=== PATIENT | female | born 1965 | race Caucasian/White ===

== ENCOUNTER → 2018-08-24 | Outpatient (CLI) | payer MEDICARE, OTHER ==
[~2018-08-24] MED LIST: ALBU90OI61; AMLO5; CITA20; FENOFIBRATE; FLUSAL1005; HYDHCL25; IBUP800 PO; LEVSOD25; MELO7.5 PO; MONT10T; NAPR500; NIAC500ER; OMEP20ER; ROSU10TA; RXANTBENOT AU; RXOXYACE PO; SULTRIDS PO; TRAZ100; UNK BP MED; UNK CHOLESTEROL MED; Zithromax250 MG PO
[2018-08-26 15:07] LABS: HPV 16 Negative (Negative); HPV 18 Negative (Negative); HPV OTHER HR TYPES Negative (Negative)
== END | disposition home or self-care (01) ==
LOC: LAB 18:26 → LAB SHORT 18:26
PROVIDERS: Nurse Practitioner Obstetrics & Gynecology
DX: Z01.419 Encounter for gynecological examination (general) (routine) without abnormal findings (principal)
CPT/HCPCS: 87624; G0123

== ENCOUNTER 2019-02-24 08:16 | Day surgery (SDC) | payer MEDICARE, OTHER ==
[~2019-02-24] VITALS: Ht 162.6 cm; Wt 77.3 kg
--- NOTE | 2019-02-24 09:31 | NUR ---
02/24/[address] NOTIFIED OF PT.'S LUNGS WITH WHEEZES. ORDER GIVEN FOR DUONEB. DUONEB GIVEN.
--- NOTE | 2019-02-24 10:10 | NUR ---
02/24/19 1010 Montse Pardo 0944 O2 SATS 90% ON 3L/NC, O2 UP TO 5L/NC
== END 2019-02-24 10:46 | disposition home or self-care (01) ==
LOC: ORSCSDS 08:16
PROVIDERS: Internal Medicine Gastroenterology
PROC: 0DBN8ZX Excision of Sigmoid Colon, Via Natural or Artificial Opening Endoscopic, Diagnostic (ICD-10-PCS; principal; 2019-02-24 09:45)
DX: Z12.11 Encounter for screening for malignant neoplasm of colon (principal); Z80.0 Family history of malignant neoplasm of digestive organs; Z86.010 Personal history of colon polyps; D12.5 Benign neoplasm of sigmoid colon; K57.30 Diverticulosis of large intestine without perforation or abscess without bleeding; K60.2 Anal fissure, unspecified; E03.9 Hypothyroidism, unspecified; I10 Essential (primary) hypertension; J43.9 Emphysema, unspecified; F17.210 Nicotine dependence, cigarettes, uncomplicated; Z99.81 Dependence on supplemental oxygen; Z79.899 Other long term (current) drug therapy
CPT/HCPCS: 88305; J2704; J3010; J7120

== ENCOUNTER 2022-06-05 12:14 | Day surgery (SDC) | payer OTHER ==
[~2022-06-05] VITALS: Ht 162.6 cm; Wt 77.1 kg
[2022-06-05] MEDS ORDERED: METF500 (12:42)
[2022-06-05] MEDS ORDERED: GLIP2.5ER (12:42)
== END 2022-06-05 15:30 | disposition home or self-care (01) ==
LOC: ORSCSDS 12:14
PROVIDERS: Internal Medicine Gastroenterology
PROC: 0DBL8ZX Excision of Transverse Colon, Via Natural or Artificial Opening Endoscopic, Diagnostic (ICD-10-PCS; principal; 2022-06-05 13:45)
DX: Z12.11 Encounter for screening for malignant neoplasm of colon (principal); Z86.010 Personal history of colon polyps; Z80.0 Family history of malignant neoplasm of digestive organs; D12.3 Benign neoplasm of transverse colon; K57.30 Diverticulosis of large intestine without perforation or abscess without bleeding; G47.33 Obstructive sleep apnea (adult) (pediatric); K64.8 Other hemorrhoids; I10 Essential (primary) hypertension; E10.8 Type 1 diabetes mellitus with unspecified complications; F17.210 Nicotine dependence, cigarettes, uncomplicated; J43.9 Emphysema, unspecified; Z79.899 Other long term (current) drug therapy
CPT/HCPCS: 82947; 88305; J2704; J7120

== ENCOUNTER → 2024-01-19 | Outpatient (CLI) | payer OTHER ==
[~2024-01-19] MED LIST changes: +GLIP2.5ER; +METF500
== END ==
LOC: LAB 07:56 → LAB SHORT 07:56
DX: N90.89 Other specified noninflammatory disorders of vulva and perineum (principal)
CPT/HCPCS: 88305

== ENCOUNTER 2025-04-07 07:14 | Day surgery (SDC) | payer OTHER ==
[~2025-04-07] VITALS: Ht 157.5 cm; Wt 68.1 kg
[2025-04-07] VITALS (8 sets, daily range): BP systolic 140–170; BP diastolic 70–87
[~2025-04-07 07:14] MED LIST changes: +ALBU90OI INH; -ALBU90OI61; +AMLO10 PO; -AMLO5; +CELEXA40 M1 PO; -CITA20; +CLIMARA1 EACH TOP; +COMBIVENT RESPIM4 G1 INH; -GLIP2.5ER; +GLIPIZIDE ER5 MG PO; -HYDHCL25; +HYDHCL25 PO; -LEVSOD25; +LEVSOD25 PO; +LOSA25 PO; -METF500; +METF500 PO; -MONT10T; +MONT10T PO; -OMEP20ER; +OMEP20ER PO; +OZEMPIC0.25 MG/02 SC; +ROSUVASTATIN CA20 MG PO
--- NOTE | 2025-04-07 08:10 | NUR ---
History, Chart, Medications and Allergies reviewed before start of procedure. Pre-Op teaching done. Pt verbalizes understanding. Ambulatory in Day Surgery. Patient confirms NPO status and agrees with scheduled surgery. Patient States Post-Procedure ride home has been arranged.
[2025-04-07] MEDS ORDERED: Bupivacaine 0.5% HCl 5 MG/ML 30MLVIAL ONE (08:23)
[2025-04-07] MEDS ORDERED: Metoclopramide HCl 5MG / ML 2ML Vial IV PRN (08:25)
[2025-04-07] MEDS ORDERED: HYDROmorphone HCl/Pf 1MG SYR IV PRN (08:25)
[2025-04-07] MEDS ORDERED: FentaNYL Citrate 50 MCG/ML 2 ML Injection IV PRN ×3 (08:25→08:30)
[2025-04-07] MEDS ORDERED: Midazolam HCl 1MG / ML 2ML Vial IV PRN (08:25)
[2025-04-07] MEDS ORDERED: FentaNYL Citrate 50 MCG/ML 2 ML Injection ONE (08:27)
[2025-04-07] MEDS ORDERED: Ketorolac Tromethamine 30mg Vial ONE (08:30)
[2025-04-07] MEDS ORDERED: Dexamethasone Sod Phos 10 MG/ML 1ML VIAL ONE (08:30)
[2025-04-07] MEDS ORDERED: Ondansetron HCl 2 MG / ML 2ML Vial IV PRN (08:30)
[2025-04-07] MEDS ORDERED: Ondansetron HCl 2 MG / ML 2ML Vial ONE (08:30)
[2025-04-07] MEDS ORDERED: OxyCODONE 5 mg/Acetamin 325 mg TABLET PO ONE (11:40)
--- NOTE | 2025-04-07 11:42 | NUR ---
TO STEP POST LIPOMA REMOVAL. RIGHT UPPER BACK WITH MEDIPORE DRESSING, CDI. DENIES PAIN, NAUSEA, SOB. YOUNG PO WELL. 1 PERCOCET GIVEN ORDERED. DC'D IV INTACT. DC'D VIA WC TO PRIVATE CAR WITH INDUSTRIAL MAINTENANCE MANAGER.
== END 2025-04-07 12:01 | disposition home or self-care (01) ==
LOC: ORSCMMR 07:14 → ORD 09:00 → ORSCMMR 12:01
PROVIDERS: Surgery
PROC: 0JBD0ZX Excision of Right Upper Arm Subcutaneous Tissue and Fascia, Open Approach, Diagnostic (ICD-10-PCS; principal; 2025-04-07 09:00)
DX: D17.1 Benign lipomatous neoplasm of skin and subcutaneous tissue of trunk (principal); I10 Essential (primary) hypertension; E11.9 Type 2 diabetes mellitus without complications; J44.89 Other specified chronic obstructive pulmonary disease; I25.10 Atherosclerotic heart disease of native coronary artery without angina pectoris; K21.9 Gastro-esophageal reflux disease without esophagitis; Z79.85 Long-term (current) use of injectable non-insulin antidiabetic drugs; Z79.84 Long term (current) use of oral hypoglycemic drugs; Z79.899 Other long term (current) drug therapy
CPT/HCPCS: 82947; 88304; A9270; J1100; J1885; J2405; J2704; J3010; J7120